=== PATIENT | female | born 1995 | race Caucasian/White ===

== ENCOUNTER 2017-08-10 23:16 | Emergency (ER) | payer OTHER, MEDICAID ==
[~2017-08-10] VITALS: Ht 157.5 cm; Wt 45.4 kg
[2017-08-10 23:31] VITALS: BP_SYST 146
--- NOTE | 2017-08-10 23:31 | NUR ---
Patient to ER bed 4 to gown for evaluation. Side rails up. Report given to Loren VILLEGAS.
--- NOTE | 2017-08-10 23:50 | NUR ---
PT IN BED 4 WITH C/O HEAD PAIN S/P HEAD INJURY. DR TAYLOR AWARE.
--- NOTE | 2017-08-10 23:58 | NUR ---
ER at bedside examining patient.
--- NOTE | 2017-08-11 01:06 | NUR ---
Patient given written and verbal discharge instructions and verbalizes understanding. ER MD discussed with patient the results and treatment provided. Patient in stable condition. ID arm band removed. NO Rx given. Patient educated on pain management and to follow up with PMD. Pain Scale 0/10. Opportunity for questions provided and answered. Medication side effect fact sheet provided.
[2017-08-11 01:08] VITALS: BP_SYST 138
== END 2017-08-11 01:08 | disposition home or self-care (01) ==
LOC: SED 23:16
DX: S00.03XA Contusion of scalp, initial encounter (principal); X58.XXXA Exposure to other specified factors, initial encounter; Y93.18 Activity, surfing, windsurfing and boogie boarding; Y92.89 Other specified places as the place of occurrence of the external cause; Y99.8 Other external cause status
CPT/HCPCS: 70450-TC; 81025; 99284